=== PATIENT | female | born 1975 | race Caucasian/White ===

== ENCOUNTER 2016-06-13 08:24 | Emergency (ER) | payer OTHER ==
[~2016-06-13 08:24] MED LIST: IBUP600T26 PO; NORCOTAB PO
--- NOTE | 2016-06-13 09:41 | EDDOCDS ---
Physician Documentation [facility] Name: Lenore Naqvi Age: 41 yrs Sex: Female : 1975 Arrival Date: 06/13/2016 Time: 08:24 Bed I3 / M3 Private MD: Maryellen Polo Disposition: 06/13/16 09:33 Discharged to Home/Self Care. Impression: Strain of muscle(s) and tendon(s) of the rotator cuff of right shoulder. - Condition is Stable. - Discharge Instructions: Shoulder Pain, [id number]. - Prescriptions for etodolac 200 mg Oral Capsule - take 1 capsule by ORAL route 3 times per day; 30 capsule. - Medication Reconciliation, Local Pharmacy Hours form. - Follow up: Orthopaedics, [facility]; When: Call to arrange an appointment; Reason: Further diagnostic work-up, Recheck today's complaints, Continuance of care. - Problem is new. - Symptoms are unchanged. Historical: - Allergies: no known allergies; - Home Meds: 1. trigenta 5 mg daily - PMHx: Diabetes - NIDDM: controlled; - PSHx: Cesearean Section; ; - Social history: Smoking status: Patient uses tobacco products, heavy tobacco smoker. No barriers to communication noted, The patient speaks fluent Slovenian. - Family history: Not pertinent. - : The pt / caregiver states he / she is not on anticoagulants. Home medication list is obtained from the patient. - Exposure Risk Screening:: None identified. 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 7 in. (170.18 cm) (R); Pain 6/10; 09:36 BP 125 / 73; Pulse 70; Resp 18; Temp 97.8; Pulse Ox 99% ; Pain 8/10; jam1 08:35 Body Mass Index 28.97 (83.91 kg, 170.18 cm) ct3 MDM: 08:44 Shoulder, Complete Ordered. EDMS Signatures: Dispatcher MedHost EDMS Carol Narvaez, RN RN Kenny Esteves PA PA btw King, Margaret, RN RN mk4 MTDD
--- NOTE | 2016-06-13 09:41 | EDDOCDS ---
Nurse's Notes [facility] Name: Lenore Naqvi Age: 41 yrs Sex: Female : 1975 Arrival Date: 06/13/2016 Time: 08:24 Bed I3 / M3 Private MD: Maryellen Polo Diagnosis: Strain of muscle(s) and tendon(s) of the rotator cuff of right shoulder Presentation: 06/13 08:40 Presenting complaint: Patient states: fell last night on ice and right shoulder is mk4 injured. Adult Sepsis Screening: The patient does not have new or worsening altered mentation. Patient's respiratory rate is less than 22. Systolic blood pressure is greater than 100. Patient has a qSOFA score of 0- Negative Sepsis Screen. Suicide/Homicide risk assessment- the patient denies having any suicidal and/or homicidal ideations and does not present with any other emotional, behavioral or mental health complaints. 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 Transition of care: patient was not received from another setting of care. 08:40 Acuity: ESTEPHANIE Level 4 4 08:40 Method Of Arrival: Walkin/Carried/Asstd mk4 Triage Assessment: 08:41 General: Appears in no apparent distress. Pain: Location: anterior aspect of right mk4 shoulder and posterior aspect of right shoulder Pain currently is 6 out of 10 on a pain scale. HIV screening NA for this visit Offered previously. 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 trigenta 5 mg daily - PMHx: Diabetes - NIDDM: controlled; - PSHx: Cesearean Section; ; - Social history: Smoking status: Patient uses tobacco products, heavy tobacco smoker. No barriers to communication noted, The patient speaks fluent Stateless. - Family history: Not pertinent. - : The pt / caregiver states he / she is not on anticoagulants. Home medication list is obtained from the patient. - Exposure Risk Screening:: None identified. Screenin:13 Screening information is obtained from the patient. Primary language is Stateless. Fall jam1 risk: No risks identified. Assistance ADL's: requires no assistance with activities of daily living. Abuse/DV Screen: The patient / caregiver reports he/she is: not in a situation that causes fear, pain or injury. Nutritional screening: No deficits noted. Exposure Risk Screening: None identified. Advance Directives: Currently, there is no health care proxy. There is no active DNR order. There is no living will. There is no Power of Car [place]. Advance directive information has not previously been placed in an [facility] medical record. Further advance directive information is declined. home support is adequate. Assessment: 08:47 General: Appears in no apparent distress. Pain: Location: posterior aspect of right mk4 shoulder and anterior aspect of right shoulder Pain currently is 6 out of 10 on a pain scale. Musculoskeletal: No deficits noted. Circulation, motion, and sensation intact Capillary refill < 3 seconds in right fingers. 09:39 General: Appears in no apparent distress, Behavior is appropriate for age, cooperative. srm Pain: Pain currently is 8 out of 10 on a pain scale. Neurological: No deficits noted. Cardiovascular: No deficits noted. Respiratory: No deficits noted. Musculoskeletal: Circulation, motion, and sensation intact Capillary refill < 3 seconds in right fingers. Vital Signs: 08:35 BP 122 / 70; Pulse 78; Resp 18; Temp 98.3(O); Pulse Ox 99% on R/A; Weight 83.91 kg (R); ct3 Height 5 ft. 7 in. (170.18 cm) (R); Pain 6/10; 09:36 BP 125 / 73; Pulse 70; Resp 18; Temp 97.8; Pulse Ox 99% ; Pain 8/10; jam1 08:35 Body Mass Index 28.97 (83.91 kg, 170.18 cm) ct3 Vitals: 08:41 Log In Time: June 13, 2016 at 08:24. 4 ED Course: 08:26 Patient visited by Osmin Betancur Reg. pm4 08:26 Maryellen Polo is Private Physician. pm4 08:26 Patient moved to Waiting pm4 08:36 Patient visited by Sabrina Plaza PCA. ct3 08:40 Triage Initiated mk4 08:42 Patient moved to I3 / M3 mk4 08:46 Kenny Rehman PA is PHCP. btw 08:46 Charmaine Lawton MD is Attending Physician. btw 08:58 Patient visited by Kenny Rehman PA. btw 09:13 Pt greeted and oriented to ED. Patient advised of names of staff involved in care, jam1 location of call davies, wait times and NPO status. Patient has correct armband on for positive identification. Bed in low position. Call light in reach. Side rails up X 1. Door closed. 09:30 Patient visited by Latisha Elizabeth, IRLANDA. mkAriane 09:32 Orthopaedics, [facility] is Referral Physician. btw 09:39 The patient / caregiver is instructed regarding the plan of care and ED course. srm 09:39 No IV's were initiated during this patient's visit. No procedures done that require srm assistance. Order Results: There are currently no results for this order. Outcome: 09:33 Discharge ordered by Provider. btw 09:39 Discharge Assessment: Patient awake, alert and oriented x 3. No cognitive and/or srm functional deficits noted. Patient verbalized understanding of disposition instructions. 09:40 Discharge Assessment: patient administered narcotics - no. The following High Risk srm Discharge criteria are identified: None. Discharged to home ambulatory. Condition: good Condition: stable. Discharge instructions given to patient, Instructed on discharge instructions, follow up and referral plans. medication usage, Rest, Ice, Compression and Elevation. Demonstrated understanding of instructions, medications, Pt was receptive of discharge instructions/ teaching. Prescriptions given X 1. No special radiology studies were completed. Property :Personal belongings accompany Pt. 09:40 Patient left the ED. srm Signatures: Carol Narvaez, RN RN srm Rima Akbar, SLUBBER OPERATOR SLUBBER OPERATOR jam1 Kenny Rehman PA PA btw Sabrina Plaza, SLUBBER OPERATOR SLUBBER OPERATOR ct3 Latisha Elizabeth, RN RN mk4 Osmin Betancur, Reg Reg pm4 MTDD
--- NOTE | 2016-06-13 14:38 | REP ---
Three-view right shoulder series 06/13/2016 Indication: Trauma Comparison: AP portable chest 02/17/2009 performed at [facility] Findings: Right shoulder is without acute fracture subluxation or dislocation. Small sclerotic density within the right humeral head is most compatible with benign bone island. There is a tiny nonspecific subchondral cyst also noted in humeral head. Acromioclavicular joint is intact. The scapula and right clavicle are intact Impression: no acute fracture or dislocation within right shoulder. Signed by Bria Guerrero MD 06/13/2016 10:11 A
--- NOTE | 2016-06-15 10:41 | EDDOCDS ---
Physician Documentation [facility] Name: Lenore Naqvi Age: 41 yrs Sex: Female : 1975 Arrival Date: 06/13/2016 Time: 08:24 Bed I3 / M3 Private MD: Maryellen Polo Disposition: 06/13/16 09:33 Discharged to Home/Self Care. Impression: Strain of muscle(s) and tendon(s) of the rotator cuff of right shoulder. - Condition is Stable. - Discharge Instructions: Shoulder Pain, [id number]. - Prescriptions for etodolac 200 mg Oral Capsule - take 1 capsule by ORAL route 3 times per day; 30 capsule. - Medication Reconciliation, Local Pharmacy Hours form. - Follow up: Orthopaedics, [facility]; When: Call to arrange an appointment; Reason: Further diagnostic work-up, Recheck today's complaints, Continuance of care. - Problem is new. - Symptoms are unchanged. Historical: - Allergies: no known allergies; - Home Meds: 1. trigenta 5 mg daily - PMHx: Diabetes - NIDDM: controlled; - PSHx: Cesearean Section; ; - Social history: Smoking status: Patient uses tobacco products, heavy tobacco smoker. No barriers to communication noted, The patient speaks fluent Czech. - Family history: Not pertinent. - : The pt / caregiver states he / she is not on anticoagulants. Home medication list is obtained from the patient. - Exposure Risk Screening:: None identified. 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 7 in. (170.18 cm) (R); Pain 6/10; 09:36 BP 125 / 73; Pulse 70; Resp 18; Temp 97.8; Pulse Ox 99% ; Pain 8/10; jam1 08:35 Body Mass Index 28.97 (83.91 kg, 170.18 cm) ct3 MDM: 08:44 Shoulder, Complete Ordered. EDMS 09:48 [facility] Payment Agreement was scanned into Runtastic and attached to record. pm4 12:28 T-Sheet-- Draft Copy was scanned into Runtastic and attached to record. gb Signatures: Dispatcher MedHost EDCarol Dietrich, RN IRLANDA [facility] Roz Guzman, Reg Reg gb Kenny Rehman PA PA btw King, Margaret, RN RN mk4 Osmin Betancur, Reg Reg pm4 The chart was reviewed and I authenticate all verbal orders and agree with the evaluation and treatment provided.Attachments: 09:48 [facility] Payment Agreement pm4 12:28 T-Sheet-- Draft Copy gb Chart Complete MTDD
--- NOTE | 2016-06-15 10:41 | EDDOCDS ---
Nurse's Notes [facility] Name: Lenore Naqvi Age: 41 yrs Sex: Female : 1975 Arrival Date: 06/13/2016 Time: 08:24 Bed I3 / M3 Private MD: Maryellen Polo Diagnosis: Strain of muscle(s) and tendon(s) of the rotator cuff of right shoulder Presentation: 06/13 08:40 Presenting complaint: Patient states: fell last night on ice and right shoulder is mk4 injured. Adult Sepsis Screening: The patient does not have new or worsening altered mentation. Patient's respiratory rate is less than 22. Systolic blood pressure is greater than 100. Patient has a qSOFA score of 0- Negative Sepsis Screen. Suicide/Homicide risk assessment- the patient denies having any suicidal and/or homicidal ideations and does not present with any other emotional, behavioral or mental health complaints. 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 Transition of care: patient was not received from another setting of care. 08:40 Acuity: ESTEPHANIE Level 4 4 08:40 Method Of Arrival: Walkin/Carried/Asstd mk4 Triage Assessment: 08:41 General: Appears in no apparent distress. Pain: Location: anterior aspect of right mk4 shoulder and posterior aspect of right shoulder Pain currently is 6 out of 10 on a pain scale. HIV screening NA for this visit Offered previously. 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 trigenta 5 mg daily - PMHx: Diabetes - NIDDM: controlled; - PSHx: Cesearean Section; ; - Social history: Smoking status: Patient uses tobacco products, heavy tobacco smoker. No barriers to communication noted, The patient speaks fluent Belizean. - Family history: Not pertinent. - : The pt / caregiver states he / she is not on anticoagulants. Home medication list is obtained from the patient. - Exposure Risk Screening:: None identified. Screenin:13 Screening information is obtained from the patient. Primary language is Belizean. Fall jam1 risk: No risks identified. Assistance ADL's: requires no assistance with activities of daily living. Abuse/DV Screen: The patient / caregiver reports he/she is: not in a situation that causes fear, pain or injury. Nutritional screening: No deficits noted. Exposure Risk Screening: None identified. Advance Directives: Currently, there is no health care proxy. There is no active DNR order. There is no living will. There is no Power of [place]. Advance directive information has not previously been placed in an [facility] medical record. Further advance directive information is declined. home support is adequate. Assessment: 08:47 General: Appears in no apparent distress. Pain: Location: posterior aspect of right mk4 shoulder and anterior aspect of right shoulder Pain currently is 6 out of 10 on a pain scale. Musculoskeletal: No deficits noted. Circulation, motion, and sensation intact Capillary refill < 3 seconds in right fingers. 09:39 General: Appears in no apparent distress, Behavior is appropriate for age, cooperative. srm Pain: Pain currently is 8 out of 10 on a pain scale. Neurological: No deficits noted. Cardiovascular: No deficits noted. Respiratory: No deficits noted. Musculoskeletal: Circulation, motion, and sensation intact Capillary refill < 3 seconds in right fingers. Vital Signs: 08:35 BP 122 / 70; Pulse 78; Resp 18; Temp 98.3(O); Pulse Ox 99% on R/A; Weight 83.91 kg (R); ct3 Height 5 ft. 7 in. (170.18 cm) (R); Pain 6/10; 09:36 BP 125 / 73; Pulse 70; Resp 18; Temp 97.8; Pulse Ox 99% ; Pain 8/10; jam1 08:35 Body Mass Index 28.97 (83.91 kg, 170.18 cm) ct3 Vitals: 08:41 Log In Time: June 13, 2016 at 08:24. 4 ED Course: 08:26 Patient visited by Osmin Betancur Reg. pm4 08:26 Maryellen Polo is Private Physician. pm4 08:26 Patient moved to Waiting pm4 08:36 Patient visited by Sabrina Plaza PCA. ct3 08:40 Triage Initiated mk4 08:42 Patient moved to I3 / M3 mk4 08:46 Kenny Rehman PA is PHCP. btw 08:46 Charmaine Lawton MD is Attending Physician. btw 08:58 Patient visited by Kenny Rehman PA. btw 09:13 Pt greeted and oriented to ED. Patient advised of names of staff involved in care, jam1 location of call davies, wait times and NPO status. Patient has correct armband on for positive identification. Bed in low position. Call light in reach. Side rails up X 1. Door closed. 09:30 Patient visited by Latisha Elizabeth RN. mk4 09:32 Orthopaedics, [facility] is Referral Physician. btw 09:39 The patient / caregiver is instructed regarding the plan of care and ED course. srm 09:39 No IV's were initiated during this patient's visit. No procedures done that require srm assistance. 09:48 [facility] Payment Agreement was scanned into Elastra and attached to record. pm4 12:28 T-Sheet-- Draft Copy was scanned into Elastra and attached to record. gb 15:07 Shoulder, Complete Returned. EDMS Order Results: Radiology Order: Shoulder, Complete Test: Shoulder, Complete REASON FOR EXAMINATION: Trauma; Three-view right shoulder series 06/13/2016; ; Indication: Trauma; ; Comparison: AP portable chest 02/17/2009 performed at [facility]; ; Findings: Right shoulder is without acute fracture subluxation or dislocation.; Small sclerotic density within the right humeral head is most compatible with; benign bone island. There is a tiny nonspecific subchondral cyst also noted in; humeral head.; ; Acromioclavicular joint is intact. The scapula and right clavicle are intact; ; Impression: no acute fracture or dislocation within right shoulder.; ; ; Signed by; Bria Guerrero MD 06/13/2016 10:11 A; Outcome: 09:33 Discharge ordered by Provider. btw 09:39 Discharge Assessment: Patient awake, alert and oriented x 3. No cognitive and/or srm functional deficits noted. Patient verbalized understanding of disposition instructions. 09:40 Discharge Assessment: patient administered narcotics - no. The following High Risk srm Discharge criteria are identified: None. Discharged to home ambulatory. Condition: good Condition: stable. Discharge instructions given to patient, Instructed on discharge instructions, follow up and referral plans. medication usage, Rest, Ice, Compression and Elevation. Demonstrated understanding of instructions, medications, Pt was receptive of discharge instructions/ teaching. Prescriptions given X 1. No special radiology studies were completed. Property :Personal belongings accompany Pt. 09:40 Patient left the ED. srm Signatures: Dispatcher DataRPM Carol Younger, RN RN srm Rima Akbar, FOOD STYLIST FOOD STYLIST jam1 Roz Guzman, Reg Reg gb Kenny Rehman PA PA btw Sabrina Plaza, FOOD STYLIST FOOD STYLIST ct3 Latisha Elizabeth, RN RN mk4 Osmin Betancur, Reg Reg pm4 Chart Complete MTDD
--- NOTE | 2016-06-15 10:41 | EDDOCDS ---
Physician Documentation [facility] Name: Lenore Naqvi Age: 41 yrs Sex: Female : 1975 Arrival Date: 06/13/2016 Time: 08:24 Bed I3 / M3 Private MD: Maryellen Polo Disposition: 06/13/16 09:33 Discharged to Home/Self Care. Impression: Strain of muscle(s) and tendon(s) of the rotator cuff of right shoulder. - Condition is Stable. - Discharge Instructions: Shoulder Pain, [id number]. - Prescriptions for etodolac 200 mg Oral Capsule - take 1 capsule by ORAL route 3 times per day; 30 capsule. - Medication Reconciliation, Local Pharmacy Hours form. - Follow up: Orthopaedics, [facility]; When: Call to arrange an appointment; Reason: Further diagnostic work-up, Recheck today's complaints, Continuance of care. - Problem is new. - Symptoms are unchanged. Historical: - Allergies: no known allergies; - Home Meds: 1. trigenta 5 mg daily - PMHx: Diabetes - NIDDM: controlled; - PSHx: Cesearean Section; ; - Social history: Smoking status: Patient uses tobacco products, heavy tobacco smoker. No barriers to communication noted, The patient speaks fluent Uzbek. - Family history: Not pertinent. - : The pt / caregiver states he / she is not on anticoagulants. Home medication list is obtained from the patient. - Exposure Risk Screening:: None identified. 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 7 in. (170.18 cm) (R); Pain 6/10; 09:36 BP 125 / 73; Pulse 70; Resp 18; Temp 97.8; Pulse Ox 99% ; Pain 8/10; jam1 08:35 Body Mass Index 28.97 (83.91 kg, 170.18 cm) ct3 MDM: 08:44 Shoulder, Complete Ordered. EDMS 09:48 [facility] Payment Agreement was scanned into g2One and attached to record. pm4 12:28 T-Sheet-- Draft Copy was scanned into g2One and attached to record. gb Signatures: Dispatcher MedHost EDCarol Dietrich, RN IRLANDA [facility] Roz Guzman, Reg Reg gb Kenny Rehman PA PA btw King, Margaret, RN RN mk4 Osmin Betancur, Reg Reg pm4 The chart was reviewed and I authenticate all verbal orders and agree with the evaluation and treatment provided.Attachments: 09:48 [facility] Payment Agreement pm4 12:28 T-Sheet-- Draft Copy gb Chart Complete MTDD
== END 2016-06-13 09:40 | disposition home or self-care (01) ==
LOC: M ED 08:24
DX: S46.011A Strain of muscle(s) and tendon(s) of the rotator cuff of right shoulder, initial encounter (principal); W00.0XXA Fall on same level due to ice and snow, initial encounter; Y92.019 Unspecified place in single-family (private) house as the place of occurrence of the external cause; Y93.01 Activity, walking, marching and hiking; Y99.8 Other external cause status; E11.9 Type 2 diabetes mellitus without complications; Z79.899 Other long term (current) drug therapy; F17.210 Nicotine dependence, cigarettes, uncomplicated

== ENCOUNTER → 2016-12-19 | Outpatient (REF) | payer OTHER ==
[~2016-12-19] MED LIST changes: +BUPR150T5; +KEPP1TAB PO; +NALT50TA4; +TYLE325T5 PO
== END ==
LOC: M LAB REF 08:52
PROVIDERS: ATTEND Physician Assistant Medical
DX: R30.0 Dysuria (principal)

== ENCOUNTER 2017-03-12 08:29 | Emergency (ER) | payer OTHER ==
[~2017-03-12] VITALS: Ht 172.7 cm; Wt 77.6 kg
[~2017-03-12 08:29] MED LIST changes: -BUPR150T5; -KEPP1TAB PO; -NALT50TA4; -TYLE325T5 PO
[2017-03-12] MEDS ORDERED: BUPR150T5 (09:31)
[2017-03-12] MEDS ORDERED: NALT50TA4 (09:31)
[2017-03-12 11:00] LABS: BASO % 0.2 % (0.0-1.0); EOS % 0.1 % (0.0-3.0); IMMATURE GRANULOCYTE % 0.4 % (0-0); LYMPH # 0.9 10^3/uL (1.5-4.5); LYMPH % 8.9 % (24.0-44.0); MEAN CORPUSCULAR HEMOGLOBIN 29.6 pg (27.0-33.0); MEAN CORPUSCULAR HGB CONC 34.8 g/dl (32.0-36.5); MONO # 0.5 10^3/uL (0.0-0.8); MONO % 4.4 % (0.0-5.0); NEUTROPHILS # 8.7 10^3/uL (1.8-7.7); PLATELET COUNT, AUTOMATED 170 10^3/uL (150-450); RED CELL DISTRIBUTION WIDTH 12.2 % (11.5-14.5); WHITE BLOOD COUNT 10.1 10^3/uL (4.0-10.0)
[2017-03-12 11:01] LABS: ADD MANUAL DIFFER NO; DIFF SLIDE NUMBER 173
[2017-03-12 11:11] LABS: INR 0.94
[2017-03-12 11:25] LABS: CONTROL LINE HCG INT CTR LINE PRESENT
[2017-03-12 11:35] LABS: ANION GAP 7 MEQ/L (8-16); BLOOD UREA NITROGEN 13 MG/DL (7-18); CALCIUM LEVEL 8.1 MG/DL (8.5-10.1); CARBON DIOXIDE LEVEL 26 MEQ/L (21-32); CHLORIDE LEVEL 108 MEQ/L (98-107); CREATININE FOR GFR 0.75 MG/DL (0.55-1.02); GLOMERULAR FILTRATION RATE > 60.0 (>58); GLUCOSE, FASTING 93 MG/DL (70-105); POTASSIUM SERUM 3.4 MEQ/L (3.5-5.1); SODIUM LEVEL 141 MEQ/L (136-145)
--- NOTE | 2017-03-12 12:10 | REP ---
CT Head without contrast HISTORY: Seizure COMPARISON: None There is no intraparenchymal hemorrhage, acute infarct, mass or midline shift. The ventricular system is normal in appearance. There is no extra cerebral collection. There is no fracture. The visualized sinuses are clear. IMPRESSION: There is no intracranial lesion. Signed by Bienvenido Barnard MD 03/12/2017 12:02 P
[2017-03-12 13:27] VITALS: BP 122/76
[2017-03-12] MEDS ORDERED: POTASSIUM CHLORIDE 10 MEQ SR TABLET PO ONE (13:30)
--- NOTE | 2017-03-13 09:16 | ECGEPIP ---
Stationary ECG Study 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
[2017-04-16] MEDS ORDERED: TYLE325T5 PO (08:42)
[2017-04-16] MEDS ORDERED: KEPP1TAB PO (10:45)
== END 2017-03-12 13:45 | disposition home or self-care (01) ==
LOC: M ED 08:29
DX: R56.9 Unspecified convulsions (principal); T43.295A Adverse effect of other antidepressants, initial encounter; E87.6 Hypokalemia; E11.9 Type 2 diabetes mellitus without complications; Z79.899 Other long term (current) drug therapy

== ENCOUNTER → 2017-04-25 | Outpatient (CLI) | payer OTHER ==
[~2017-04-25] MED LIST changes: +BUPR150T5; +KEPP1TAB PO; +MIDAZOLAM INJ 2 MG/2 ML VIAL (J2250) As Ordered ONE; +NALT50TA4; +PROHANCE 279.3MG/ML 15ML VIAL (A9576) As Ordered ONE; +TYLE325T5 PO
--- NOTE | 2017-04-25 16:46 | REP ---
MR BRAIN WITHOUT AND WITH CONTRAST: HISTORY: Syncope. CONTRAST: ProHance 14 mL. Several punctate areas of increased signal intensity on T2 weighted images are present in the periventricular and subcortical white matter. There is no intraparenchymal hemorrhage, infarct, mass, or midline shift. There is no abnormal enhancement. The ventricular system is normal in appearance. There is no extracerebral collection. Mucosal thickening is present in the ethmoid sinuses. IMPRESSION: There are several punctate area of increased signal intensity in the periventricular and subcortical white matter. This most likely represents small vessel ischemic disease. Signed by Bienvenido Barnard MD 04/25/2017 04:50 P
== END ==
LOC: M RAD 10:59
PROVIDERS: ATTEND Psychiatry & Neurology Neurology
DX: R55 Syncope and collapse (principal)
CPT/HCPCS: 70553; A9576; J2250

== ENCOUNTER 2017-12-05 18:14 | Emergency (ER) | payer OTHER | END 2017-12-05 19:22 | disposition home or self-care (01) | LOC: M ED 18:14 | DX: L30.9 Dermatitis, unspecified (principal); L03.012 Cellulitis of left finger; G40.909 Epilepsy, unspecified, not intractable, without status epilepticus; Z79.2 Long term (current) use of antibiotics; Z79.899 Other long term (current) drug therapy | CPT/HCPCS: 87205 ==

== ENCOUNTER → 2020-12-20 | Outpatient (REF) | payer OTHER ==
[~2020-12-20] MED LIST changes: +BACT800T5 PO; +KEFL500C17 PO; -MIDAZOLAM INJ 2 MG/2 ML VIAL (J2250) As Ordered ONE; -PROHANCE 279.3MG/ML 15ML VIAL (A9576) As Ordered ONE; +TRIA1OI TOP
[2020-12-20 12:36] LABS: BASO # 0.1 10^3/uL (0.0-0.2); BASO % 0.9 % (0.0-1.0); EOS # 0.1 10^3/uL (0.0-0.5); EOS % 1.1 % (0.0-3.0); HEMATOCRIT 47.4 % (36.0-47.0); HEMOGLOBIN 15.4 g/dl (12.0-15.5); LYMPH # 1.8 10^3/uL (1.5-5.0); LYMPH % 27.7 % (24.0-44.0); MEAN CORPUSCULAR HEMOGLOBIN 28.6 pg (27.0-33.0); MEAN CORPUSCULAR HGB CONC 32.5 g/dl (32.0-36.5); MEAN CORPUSCULAR VOLUME 88.1 fl (80.0-96.0); MONO # 0.5 10^3/uL (0.0-0.8); MONO % 7.8 % (2.0-8.0); NEUTROPHILS # 4.1 10^3/uL (1.5-8.5); NEUTROPHILS % 62.2 % (36.0-66.0); PLATELET COUNT, AUTOMATED 146 10^3/uL (150-450); RED BLOOD COUNT 5.38 10^6/uL (4.00-5.40); WHITE BLOOD COUNT 6.5 10^3/uL (4.0-10.0)
[2020-12-20 13:19] LABS: ALBUMIN 4.2 GM/DL (3.2-5.2); BILIRUBIN,TOTAL 0.5 MG/DL (0.2-1.0); CALCIUM LEVEL 9.6 MG/DL (8.5-10.1); CHOLESTEROL RISK RATIO 6.166 (<5); CREATININE FOR GFR 1.07 MG/DL (0.55-1.30); FREE T4 1.01 NG/DL (0.76-1.46); GLOMERULAR FILTRATION RATE 58.5 (>58); POTASSIUM SERUM 5.3 MEQ/L (3.5-5.1); THYROID STIMULATING HORMONE 1.71 uIU/ML (0.358-3.740); TOTAL PROTEIN 7.6 GM/DL (6.4-8.2)
== END ==
LOC: M SFHCADAM 08:36
PROVIDERS: ATTEND Family Medicine
DX: Z00.00 Encounter for general adult medical examination without abnormal findings (principal)

== ENCOUNTER → 2021-03-15 | Outpatient (REF) | payer OTHER ==
[2021-03-15 12:05] LABS: HEMOGLOBIN A1c 5.4 %
[2021-03-15 12:38] LABS: ALBUMIN 3.9 GM/DL (3.2-5.2); ALT/SGPT 43 U/L (12-78); BILIRUBIN,TOTAL 0.3 MG/DL (0.2-1.0); BLOOD UREA NITROGEN 16 MG/DL (7-18); CALCIUM LEVEL 9.2 MG/DL (8.5-10.1); CARBON DIOXIDE LEVEL 27 MEQ/L (21-32); CHLORIDE LEVEL 108 MEQ/L (98-107); CREATININE FOR GFR 0.99 MG/DL (0.55-1.30); GLOMERULAR FILTRATION RATE > 60.0 (>58); GLUCOSE, FASTING 102 MG/DL (70-100); SODIUM LEVEL 139 MEQ/L (136-145); TOTAL PROTEIN 6.9 GM/DL (6.4-8.2)
== END ==
LOC: M SFHCADAM 08:00
PROVIDERS: ATTEND Family Medicine
DX: E11.9 Type 2 diabetes mellitus without complications (principal); G40.909 Epilepsy, unspecified, not intractable, without status epilepticus